=== PATIENT | female | born 1985 | race Caucasian/White ===

== ENCOUNTER 2023-10-08 09:51 | Outpatient (CLI) | payer OTHER, SELFPAY ==
--- NOTE | 2023-10-08 10:07 | ECG_ITS ---
Measurements Intervals [place] Rate: 67 P: 2 KS: 151 QRS: 56 QRSD: 91 T: 60 QT: 400 QTc: 422 Interpretive Statements SINUS RHYTHM NORMAL ECG NO PREVIOUS ECG AVAILABLE FOR COMPARISON Electronically Signed On 10-08-2023 11:36:07 [employer]ODUCT [employer] ASSOCIATE by Lennox Foreman D.O.
== END 2023-10-08 09:52 | disposition home or self-care (01) ==
PROVIDERS: PCP Physician Assistant Medical; Visit Provider Nurse Practitioner Family
DX: F90.0 Attention-deficit hyperactivity disorder, predominantly inattentive type (principal)
CPT/HCPCS: 93005